=== PATIENT | female | born 1985 | race Caucasian/White ===

== ENCOUNTER 2023-01-17 13:21 | Emergency (ER) | payer BC, SELFPAY ==
[2023-01-17 13:22] VITALS: BP 113/79; PULSE 96; RESP 18; TEMP 36.5; O2SAT 96; BMI 31.2
[2023-01-17 14:01] VITALS: O2SAT 98
[2023-01-17 14:04] VITALS: BP 114/62; PULSE 96; RESP 20; O2SAT 97
--- NOTE | 2023-01-17 14:10 | RAD_ITS ---
STUDY: X-RAY CHEST REASON FOR EXAM: Female, 37 years old. Cough -- Shield abdomen . Patient is 30 weeks . TECHNIQUE: PA and lateral views of the chest. COMPARISON: None. FINDINGS: The lungs are clear and expanded. There is no demonstrated pleural abnormality. Normal size heart. Normal mediastinum and uri. Normal visualized pulmonary arteries. Normal visualized aortic arch and descending thoracic aorta. Normal visualized thoracic spine. Normal visualized ribs, clavicles, and shoulders. There is no demonstrated abnormality of the visualized soft tissue structures of the upper abdomen. RAD/Chest PA and Lateral IMPRESSION: Normal x-ray examination of the chest. Electronically Signed: Tk Tejada MD at 14:24 EST ,
--- NOTE | 2023-01-17 14:48 | ED.VIS.DYS ---
HPI History of Present Illness Chief Complaint: Cold Sx Informant: patient Onset/Context/Timing Onset: Weeks (1-2) Context: gradual Timing: Continuous Quality: Positive for Dyspnea on exertion Worsened by: Nothing Relieved by: Albuterol (Xopenex) and - Associated Symptoms cough, rhinorrhea and post nasal drip; Negative for ear pain, fever, sore throat, subjective, chills, clear sputum, white sputum, yellow sputum or green sputum Chest Pain: Positive for None Narrative Narrative: Patient presents with shortness of breath and cough that has been getting worse over the past 1 to 2 weeks. Patient is approximate 30 weeks . Patient states she was prescribed an antibiotic on 01/03/2023. Patient states she took it for 5 days. Patient states that on the fourth day she started noticed improvement of her symptoms. Patient states that her symptoms improved for a few days and then started to return. Patient states she was started on prednisone and has been on that for the last 3 days. Patient states her symptoms have not improved. Patient states she is not coughing anything up but states she never coughs anything up whenever she has respiratory infection. Patient admits to some nausea but denies any vomiting. Patient states this is similar to the nausea she has had throughout the . Patient admits to some nasal congestion, headache, and sinus pressure. [facility] Medical History (Updated 01/17/23 @ 15:[address] Humberto Retana DO) Asthma Migraines Vocal cord dysplasia Allergy/AdvReac Type Severity Reaction Status Date / Time albuterol Allergy Chest Verified 01/17/23 13:59 tightness ciprofloxacin [From Cipro] Allergy Hives Verified 01/17/23 13:59 diphenhydramine Allergy Other Verified 01/17/23 13:59 [From Benadryl] levofloxacin [From Levaquin] Allergy Hives Verified 01/17/23 13:59 Surgical History (Updated 01/17/23 @ 14:[address] Humbetro Retana DO) Hx of sinus surgery Previous section Social History Smoking Status: Never smoker ROS ROS ED Constitutional Constitutional ED: Denies chills or fever(s) Eyes Eyes: Denies blurry vision or change in vision ENT ENT ED: Reports rhinorrhea; Denies sore throat Cardiovascular Cardiovascular: Denies chest pain or palpitations Respiratory/Chest Respiratory/Chest: Reports cough and dyspnea Gastrointestinal Gastrointestinal: Reports nausea; Denies vomiting Genitourinary Genitourinary ED: Reports urinary frequency; Denies dysuria or hematuria Musculoskeletal Musculoskeletal: Denies back pain or neck pain Integumentary Denies abscess or rash Neurologic Neurologic: Reports headache(s); Denies weakness Allergic/Immunologic Allergic/Immunologic ED: Denies mouth swelling or urticaria EXAM Physical Exam Const Vital Signs: 01/17/23 13:22 01/17/23 14:01 01/17/23 14:04 Temperature 97.7 F L Temperature Source Temporal Pulse Rate 96 96 Respiratory Rate 18 20 H Respiratory Effort Short of Breath Labored Respiratory Depth Normal Respiratory Pattern Tachypnea Blood Pressure 113/79 114/62 Blood Pressure Mean 90 79 Pulse Ox 96 97 Oxygen Delivery Method Room Air Room Air Room Air Positive well nourished and well developed General Appearance ED: well developed HEENT Reports moist mucous membranes Neck supple and no JVD Resp normal respiratory effort Auscultation: rhonchi throughout (Mild scattered rhonchi) Cardio regular rate, regular rhythm and no murmurs GI normal to inspection, nondistended, normoactive bowel sounds and non-tender Palpation: soft Extremity normal to inspection General Extremety ED: Negative for edema or tenderness General Extremity: Negative for edema Neuro oriented x3, CN's II-XII intact bilaterally and no sensory deficits noted Sensorium / Orientation: alert Motor Exam: strength 5/5 throughout Psych mental status grossly normal Skin no rashes or lesions noted MDM MDM MDM Narrative Medical decision making narrative: Differential diagnosis includes pneumonia, viral infection, COVID infection, influenza, and upper respiratory infection. Chest x-ray will be obtained to assess for pneumonia. COVID-19 rapid antigen will be obtained to assess for COVID infection. Influenza A and influenza B rapid antigens will be obtained to assess for influenza infection. Radiography Chest X-Ray - ED: 2 View, Read by ED Physician, Read by Radiologist, Normal and No Acute Disease Diagnostic Testing: Clinical Impression(s) from Imaging Studies Chest X-Ray 01/17/23 14:10 IMPRESSION: Normal x-ray examination of the chest. Electronically Signed: Tk Tejada MD at 14:24 EST , PA and lateral chest x-ray was obtained. There are 2 views. On my independent interpretation, lung craig are clear. There is normal cardiac silhouette. Bony thorax is normal. There is no acute process noted. Radiologist also interpreted the x-ray and agrees. Treatment and Re-Evaluation Narrative: Patient is feeling better on reevaluation. Patient was advised of her findings. Patient was turned over to the oncoming physician pending COVID and influenza results. Patient would not be a candidate for Paxil that even if her COVID is positive since her symptoms have been present for more than 5 days. Patient was instructed to drink plenty of fluids. Patient was instructed to follow-up with her primary care physician in 5 to 7 days. Patient understood and was agreeable with the plan. All questions were answered. Discharge Plan Triage Chief Complaint: Cold Sx ED Provider: Humberto Retana Dx/Rx/DC Orders Clinical Impression: Acute viral bronchitis, Instructions: ED Bronchitis, No Antibiotic (Adult) Primary Care Provider: Care Physician,No Primary Referrals: Daniel Chung MD [Med Staff - Active Staff] - 5-7 Days Care Physician,No Primary [Primary Care Provider] - Disposition Disposition: Home, Self Care
[2023-01-17 16:14] VITALS: BP 111/61; PULSE 94; RESP 18; O2SAT 99
== END 2023-01-17 16:15 | disposition home or self-care (01) ==
PROVIDERS: Emergency Provider Emergency Medicine; Visit Provider Emergency Medicine
DX: O99.513 Diseases of the respiratory system complicating pregnancy, third trimester (principal); O09.513 Supervision of elderly primigravida, third trimester; J20.9 Acute bronchitis, unspecified; Z3A.30 30 weeks gestation of pregnancy
CPT/HCPCS: 71046; 87428; 99282

== ENCOUNTER 2023-03-19 09:30 | Inpatient (IN) | payer BC, SELFPAY ==
[2023-03-19] VITALS (16 sets, daily range): BP systolic 96–134; BP diastolic 40–89; PULSE 62–88; RESP 10–18; TEMP 35.9–36.7; O2SAT 96–99; BMI 32.1
[2023-03-19] MEDS: Lactated Ringers 1,000 ML 999 ML IV (10:00)
[2023-03-19 10:25] LABS: Absolute Lymphocyte Count 2.33 X10^3/uL (0.83-4.51); Absolute Neutrophil Count 6.3 X10^3/uL (2.0-7.7); Basophil# 0.03 X10^3/uL; Basophil% 0.3 % (0-1); Eosinophil# 0.07 X10^3/uL; Eosinophils% 0.7 % (0-5); Hematocrit 38.4 % (37-47); Hemoglobin 12.4 g/dL (12.0-15.0); Lymphocyte # 2.33 X10^3/ul (0.83-4.51); Lymphocyte % 24.7 % (19-41); Mean Corp Hgb Conc 32.3 g/dL (32-36); Mean Corpuscular Hgb 29.9 pg (27.0-32.0); Mean Corpuscular Volume 92.5 fL (81-99); Mean Platelet Vol. 9.7 fl (6.2-12.0); Monocyte# 0.62 X10^3/uL; Monocyte% 6.6 % (0-10); NRBC Flagged by Analyzer 0 % (0-5); Neutrophil # 6.32 X10^3/uL (2.7-7.7); Neutrophil % 67.2 % (47-70); Platelet Count 291 K/mm3 (150-450); RBC Distribution Width CV 13.7 % (11.6-14.6); RBC Distribution Width SD 46.5 fl (35.1-43.9); Red Blood Count 4.15 M/mm3 (4.2-5.4); White Blood Count 9.4 K/mm3 (4.4-11.0)
[2023-03-19 11:17] LABS: Syphilis Antibodies Non-reactive
[2023-03-19] MEDS: Lactated Ringers 1,000 ML 150 ML IV (11:44)
[2023-03-19] MEDS: Acetaminophen 500 MG Tablet 1000 MG PO ×3 (11:46→23:48)
[2023-03-19] MEDS: Sodium Citrate/Citric Acid 30 ML UDC PO (11:46)
--- NOTE | 2023-03-19 12:02 | PCM.HP.OB ---
HPI - General General Date of Admission: 03/19/23 HPI Narrative CAREY TURNER, is a 37 F who presents for repeat . Maternal Data Information Final MOI: 03/24/23 Gestational age: 39&2 PFSH PFSH Medical History Asthma History of depression Migraines Vocal cord dysplasia Home Medications amoxicillin 250 mg-potassium clavulanate 125 mg tablet 1 tab PO TID Check with primary doctor 03/19/23 [History Last Taken 03/18/23] omeprazole 20 mg capsule,delayed release 20 mg PO DAILY Check with primary doctor 03/19/23 [History Last Taken 03/18/23] ondansetron HCl 8 mg tablet 8 mg PO Q8H PRN Nausea And Vomiting 03/19/23 [History Last Taken 03/18/23] bkgpuerg-viv-Pm-FA 1 mg tablet tab PO Check with primary doctor 03/19/23 [History Last Taken 03/18/23] Allergy/AdvReac Type Severity Reaction Status Date / Time albuterol Allergy Chest Verified 03/19/23 11:23 tightness ciprofloxacin [From Cipro] Allergy Hives Verified 03/19/23 11:23 diphenhydramine Allergy Other Verified 03/19/23 11:23 [From Benadryl] levofloxacin [From Levaquin] Allergy Hives Verified 03/19/23 11:23 Surgical History History of surgery Hx of sinus surgery Previous section Social History Smoking Status: Never smoker History Elective abortions Hx Para 1 Spontaneous abortions Hx # Term Pregnancies Ectopic pregnancies Hx # Pregnancies Multiple births # of living children Vital Signs Vital Signs Vital Signs: 03/19/23 10:00 Temperature 97.6 F L Temperature Source Temporal Pulse Rate 86 Respiratory Rate 16 Blood Pressure 116/81 H Blood Pressure Mean 92 Blood Pressure Source Monitor Blood Pressure Position Supine Blood Pressure Location Right Arm Pulse Ox 98 Oxygen Delivery Method Room Air Weight Weight: 187 lb Body Mass Index (BMI) 32.1 Physical Exam Const alert, oriented x3 and no apparent distress Chest inspection of chest normal Resp normal respiratory effort GI soft to palpation and non-distended Inspection: gravid external exam normal Extremity normal to inspection and no calf tenderness Labs Labs Labs: Blood Type O POSITIVE Antibody Screen NEGATIVE Hct 38.4 % (37-47) Hgb 12.4 g/dL (12.0-15.0) Syphilis Total Ab Non-reactive See [facility] H&P Assessment & Plan (1) Previous section: COMMENT: @ 39&2 (2) 39 weeks gestation of : PLAN: Plan Admit to L&D MOD - counseled on R/B/A and will proceed with section Routine care
--- NOTE | 2023-03-19 12:06 | OP.PCM_ITS ---
Maternal Data Information Final MOI: 03/24/23 Gestational age: 39&2 Details Operative Information Date of Procedure: 03/19/23 Pre-Operative Diagnosis: (1) Prior section Post-Operative Diagnosis: Same Indications for : Repeat Elective Indications Narrative: The patient was taken to the operating room where spinal anesthesia was placed & found to be adequate. She was prepped and draped in the dorsal supine position with a leftward tilt. A Pfannenstiel skin incision was made approximately 2 cm above the symphysis pubis and carried through to the underlying fascia with the scalpel. The fascia was incised incised in the midline and extended laterally with the Calderon scissors. The rectus muscles were in the midline and the peritoneum was entered carefully and bluntly. The peritoneal incision was stretched and the bladder blade was inserted. Vesicouterine peritoneum was tented up, incised & then bladder flap created gently. The uterine incision was made in a low transverse fashion with the scalpel and extended superiorly and inferiorly with blunt dissection. The 's head was brought to the incision in the flexed position and delivered without difficulty. The head was gently guided to allow delivery of the anterior and posterior shoulders. The body then delivered with fundal pressure in the standard fashion. The 3VC cord was clamped and cut in delayed fashion. The was handed off to the waiting site reliability engineer. The placenta was delivered with fundal massage and gentle traction in the standard fashion. The uterus was exteriorized and cleared of clots and debris. The uterine incision was closed with #1 Vicryl suture in a running locked fashion. Monocryl suture was used in an imbricating fashion. 1 additional stitch placed to obtain hemostasis. The incision was examined and was found to be hemostatic. The uterus was returned to the abdominal cavity. After irrigating Tanya was placed over the uterine incision as some areas were denuded (but hemostatic). The peritoneum was closed with vicryl suture in running fashion The rectus muscle was examined and any bleeding was Bovie cauterized. The fascia was closed with PDS suture in a running standard fashion. The subcutaneous tissue was examining and any bleeding was Bovie cauterized. The subcutaneous tissue was reapproximated with interrupted sutures. The skin was closed in a subcuticular fashion by the EXECUTIVE ASSOCIATE while I was present in the labor & delivery unit. The remainder of the procedure was performed by me with assistance. All sponge, lap, and needle counts were correct. The patient was taken to her room for recovery in a stable condition. Classification: Scheduled Procedure Type: low transverse salvage mechanic #1: Rupal Chavez Type of Anesthesia: Spinal Antibiotic Given: Ancef 2 grams IV x1 Drain: Mirza to straight drain Estimated Blood Loss: 800ml Fluids Replaced: 1000ml Procedure Start Time: 12:18 Procedure Stop Time: 13:07 Findings Description of Procedure: Normal maternal uterus and adnexa Presentation: Positive for Vertex Amniotic Membrane Rupture Type: Artificial Amniotic Fluid Description: Clear Placental Delivery Description: Expressed Placenta Disposition: [facility] Cord Vessel Description: 3 Vessels Cord Entanglement: Around neck x 2, loose Nuchal Cord Compression: Without compression Infant A Gender: Female (weight = 3845g) (1 minute): 8 (5 minute): 9 Delayed Cord Clamping: Yes Complications Complications: None
[2023-03-19] MEDS: Cefazolin 2 GM in 0.9% Normal Saline 100 ML IV (12:10)
[2023-03-19] MEDS: Oxytocin 15 Units/NS 250ml 15 UNITS/250 ML IV.SOLN 83 UNITS IV (13:15)
[2023-03-19] MEDS: Ondansetron 4 MG/2 ML Vial IV (14:16)
[2023-03-19] MEDS: Ketorolac 30 MG/ML Syringe IV ×2 (14:50→20:13)
[2023-03-19] MEDS: Lactated Ringers 1,000 ML 100 ML IV (16:07)
[2023-03-19] MEDS: proCHLORPERazine 10 MG/2 ML Vial IV (16:26)
[2023-03-19] MEDS: Amox/Clavulanate 875 MG Tablet PO (18:18)
--- NOTE | 2023-03-19 19:28 | NURSING ---
pt refuses SCD's
--- NOTE | 2023-03-19 19:28 | NURSING ---
pt shaking uncontrollably at times. Adrenalyn and baby shakes explained. Pt anxious and lots of emotional support given.
[2023-03-20 00:16] VITALS: RESP 16; O2SAT 98
[2023-03-20] MEDS: Enoxaparin 40 MG/0.4 ML Syringe SC (00:20)
[2023-03-20] MEDS: Ketorolac 30 MG/ML Syringe IV ×2 (02:42→09:00)
[2023-03-20] MEDS: 0.9% Saline Lock 10 ML Syringe IV ×2 (02:43→09:00)
[2023-03-20 04:00] VITALS: BP 120/82; PULSE 73; RESP 16; TEMP 36.6
[2023-03-20] MEDS: Acetaminophen 500 MG Tablet 1000 MG PO ×4 (06:06→23:50)
[2023-03-20 06:25] LABS: Hematocrit 35.3 % (37-47); Hemoglobin 11.6 g/dL (12.0-15.0); Mean Corp Hgb Conc 32.9 g/dL (32-36); Mean Corpuscular Hgb 30.1 pg (27.0-32.0); Mean Corpuscular Volume 91.7 fL (81-99); Mean Platelet Vol. 9.3 fl (6.2-12.0); Platelet Count 286 K/mm3 (150-450); RBC Distribution Width CV 13.4 % (11.6-14.6); RBC Distribution Width SD 45.7 fl (35.1-43.9); Red Blood Count 3.85 M/mm3 (4.2-5.4); White Blood Count 13.6 K/mm3 (4.4-11.0)
--- NOTE | 2023-03-20 07:21 | PCM.PN.OB ---
Subjective Subjective Patient seen at bedside. Feeling well. Pain is controlled with Motrin and Tylenol PO. Patient ambulating and voiding without difficulty. Passing flatus. Denies any CP, SOB or dizziness. Breast feeding independently. Objective Data Objective Data Vital Signs: Vital Signs Temp Pulse Resp BP Pulse Ox O2 Del Method 97.9 F 73 16 120/82 H 98 Room Air 03/20/23 04:00 03/20/23 04:00 03/20/23 04:00 03/20/23 04:00 03/20/23 00:16 03/20/23 04:00 Oxygen Delivery Method Room Air Weight: 187 lb Body Mass Index (BMI) 32.1 Intake & Output: Intake and Output for Last 24 Hours 03/18/23 03/19/23 03/20/23 23:59 23:59 23:59 Intake Total 2784.29 / 2784.29 Output Total 3500 / 3500 1000 / 1000 Balance -715.71 / -715.71 -1000 / -1000 Lab / Micro Data Result Diagrams: 03/20/23 06:10 Labs: Laboratory Results - last 24 hr 03/19/23 10:00: WBC 9.4, RBC 4.15 L, Hgb 12.4, Hct 38.4, MCV 92.5, MCH 29.9, MCHC 32.3, RDW Std Deviation 46.5 H, RDW Coeff of Hussain 13.7, Plt Count 291, MPV 9.7, Immature Gran % (Auto) 0.500, Neut % (Auto) 67.2, Lymph % (Auto) 24.7, Charlton % (Auto) 6.6, Eos % (Auto) 0.7, Baso % (Auto) 0.3, Absolute Neuts (auto) 6.3, Absolute Lymphs (auto) 2.33, Nucleated RBC % 0 03/19/23 10:00: Blood Type O POSITIVE, Antibody Screen NEGATIVE 03/19/23 10:00: Syphilis Total Ab Non-reactive 03/20/23 06:10: WBC 13.6 H, RBC 3.85 L, Hgb 11.6 L, Hct 35.3 L, MCV 91.7, MCH 30.1, MCHC 32.9, RDW Std Deviation 45.7 H, RDW Coeff of Hussain 13.4, Plt Count 286, MPV 9.3 ROS Eyes Eyes: Denies blurry vision, change in vision or spots in vision ENT HEENT: Denies dizziness or headache(s) Cardiovascular Cardiovascular: Denies abdominal pain, chest pain or dyspnea Respiratory/Chest Respiratory/Chest: Denies cough, dyspnea, shortness of breath at rest or shortness of breath with exertion Gastrointestinal Gastrointestinal: Denies abdominal pain, diarrhea or vomiting Genitourinary Genitourinary: Denies change in urinary stream, difficulty urinating or dysuria Musculoskeletal Musculoskeletal: Reports none Integumentary Integumentary: Denies rash Neurologic Neurologic: Denies dizziness, headache(s), memory loss or weakness Physical Exam Narrative Dressing is dry and intact Const alert and no apparent distress General Appearance: cooperative and comfortable Exam Limitations: no limitations HEENT normocephalic Eyes General Eye: normal appearance of both eyes Neck full ROM General: normal visual inspection Chest Chest: symmetrical chest wall rise Resp normal respiratory effort and normal air movement Effort and Inspection: symmetric chest movement Auscultation: clear to auscultation bilaterally Cardio regular rate and regular rhythm GI normal to inspection, nondistended, normoactive bowel sounds Back/Spine normal ROM Extremity full ROM and no calf tenderness General Extremity: normal exam except as noted Skin no rashes or lesions noted Neuro CN's II-XII intact bilaterally Psych mental status grossly normal Assessment & Plan (1) Status post delivery: (2) Care and examination of lactating mother: PLAN: Plan POD 1 Repeat Section Pain control Increase ambulation Breast feeding support Anticipate discharge home tomorrow
[2023-03-20 08:50] VITALS: BP 117/75; PULSE 85; RESP 16; TEMP 36.3; O2SAT 99
[2023-03-20] MEDS: Pantoprazole Sodium 20 MG Tablet PO (08:59)
[2023-03-20] MEDS: Senna/Docusate Sodium 1 Tablet PO (08:59)
[2023-03-20] MEDS: Amox/Clavulanate 875 MG Tablet PO ×2 (08:59→18:14)
[2023-03-20 11:35] VITALS: BP 110/67; PULSE 97; RESP 16; TEMP 36.4; O2SAT 99
[2023-03-20] MEDS: Prenatal Vits Tablet 1 TABLET PO (11:46)
[2023-03-20] MEDS: Ibuprofen 600 MG Tablet PO ×2 (16:00→21:49)
[2023-03-20 16:02] VITALS: BP 111/75; PULSE 99; RESP 16; TEMP 36.8; O2SAT 98
[2023-03-20 19:40] VITALS: BP 107/78; PULSE 110; RESP 16; TEMP 36.6; O2SAT 99
[2023-03-21] MEDS: oxyCODONE 5 MG Tablet PO ×2 (01:38→14:16)
[2023-03-21 01:41] VITALS: BP 103/72; PULSE 94; RESP 18; TEMP 36.5; O2SAT 98
[2023-03-21] MEDS: Ibuprofen 600 MG Tablet PO ×3 (03:42→16:05)
[2023-03-21] MEDS: Acetaminophen 500 MG Tablet 1000 MG PO ×2 (06:04→12:01)
--- NOTE | 2023-03-21 09:01 | PCM.PN.OB ---
Subjective Subjective Denies complaints Objective Data Objective Data Vital Signs: Vital Signs Temp Pulse Resp BP Pulse Ox O2 Del Method 97.7 F L 94 18 103/72 98 Room Air 03/21/23 01:41 03/21/23 01:41 03/21/23 01:41 03/21/23 01:41 03/21/23 01:41 03/21/23 01:41 Oxygen Delivery Method Room Air Weight: 187 lb Body Mass Index (BMI) 32.1 Intake & Output: Intake and Output for Last 24 Hours 03/19/23 03/20/23 03/21/23 23:59 23:59 23:59 Intake Total 2784.29 / 2784.29 800 / 800 Output Total 3500 / 3500 1000 / 1000 Balance -715.71 / -715.71 -200 / -200 Lab / Micro Data Result Diagrams: 03/20/23 06:10 Physical Exam Const alert, oriented x3 and no apparent distress HEENT normocephalic GI soft to palpation, non-tender and non-distended GI Narrative: fundus firm, mid & below umbilicus Incision - bandage c/d/i Extremity normal to inspection and no calf tenderness Assessment & Plan (1) Status post delivery: COMMENT: POD#2 PLAN: Plan D/c home later today
[2023-03-21 09:02] VITALS: BP 103/65; PULSE 85; RESP 18; TEMP 36.5; O2SAT 99
--- NOTE | 2023-03-21 09:02 | DCINST_ITS ---
Discharge Instructions Diet Discharge Diet: No restrictions Activity Discharge Activity: May Shower May resume sexual activity in: 6 weeks Weight Bearing Status: Weight bearing as tolerated Dressing / Incision Call your doctor if your incision/area has: Continuous Slow Oozing, Sudden Increased Bleeding, Increased Pain/ Swelling, Increased Redness, Foul Smelling Discharge and Swelling at the incision site Call your doctor if you observe: Fever of 101 or Higher, Coldness, Increased Pain, Change in Color, Inability to urinate, Inability to have a bowel movement, Using more than 1 pad per hour, Shortness of breath, Dizziness, Fainting spells, Chest pain, Increased palpitations (irregular heartbeat), Calf discomfort and Uncontrolled pain Suture Line Care: Avoid Pulling/Pushing and Avoid Pinching/Bending Remove Dressing in: 1 week Cleanse incision/area with: Soap & Water Follow Up Care Please Follow Up With: Daniel Chung MD When: Follow up in 2 and 6 weeks for visits. Test Results: Test results from this visit will be discussed in further detail at your follow- up appointment, if applicable. Discharge Plan Admission Admit Date/Time: 03/19/23 09:30 Primary Reason for Your Visit: section Attending Provider: Daniel Chung Primary Care Provider: Bel Edwards Primary Discharge Orders/Prescriptions Prescriptions: New acetaminophen 500 mg Tablet 1,000 mg PO Q6 Qty: 0 0RF ibuprofen 600 mg Tablet 600 mg PO Q6H Qty: 0 0RF Continued ondansetron HCl 8 mg Tablet 8 mg PO Q8H PRN (Reason: Nausea And Vomiting) amoxicillin-pot clavulanate 250-125 mg Tablet 1 tab PO TID caanosjp-[id number]-[id number]-FA 1 mg Tablet PO omeprazole 20 mg Capsule,Delayed Release(Dr/Ec) 20 mg PO DAILY Referrals / Follow Up: Bel Edwards Primary [Primary Care Provider] - Disposition Disposition (needs filled in before D/C Order can be placed): Home, Self Care
[2023-03-21] MEDS: Pantoprazole Sodium 20 MG Tablet PO (09:09)
[2023-03-21] MEDS: Senna/Docusate Sodium 1 Tablet PO (09:09)
[2023-03-21] MEDS: Amox/Clavulanate 875 MG Tablet PO (10:03)
[2023-03-21] MEDS: Prenatal Vits Tablet 1 TABLET PO (12:01)
[2023-03-21] MEDS: Enoxaparin 40 MG/0.4 ML Syringe SC (12:02)
--- NOTE | 2023-03-21 14:05 | CASEMGMT ---
Social Work Assessment Labor and Delivery Unit Patient Address: [address], [place], [place] Phone number: [phone] Date of Referral: 03/21/2023 Time of Referral: 10:48 Referred By: Daniel Date of Intervention: 03/21/2023 Time of Intervention: 1:30 Reason for Referral: Hx of anxiety/depression History obtained from: medical records and mother of baby (MOB) and FOB Household composition: MOB (Raquel), FOB (Kyaw) and brother Cordell (Grady) 2.5 y.o. Patient's parent/guardian status: MOB and FOB have been together almost 5 years and are . Recently moved back to [place] from [place] for employment. They have one mutual son Grady. Medical History: 3 pregnanacies, now 2 babies. Son was emergency and new baby was scheduled . Baby girl 03/19 , 8/9 apgars, 8.47 lbs, named Jen (Otis). Mom had appropriate care. 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 Financial Status: Denies concerns Infant Supplies: Reports having all supplies (car seat, crib, bassinet, etc) Childcare/Caregiver(s): Maternal grandparents to help, VIDAL has 5 siblings nearby Transportation: No concerns Programs/Agencies Involved: None reported Children Services/Legal Issues: None reported Behavioral Health Issues: VIDAL reports instance of depression/anxiety when ill in 2016. VIDAL reports having a migraine for nearly 2 months and receiving medical treatment for it but reports it instigated depression and she took Zoloft for a year which helped. MOB denies any history of SI or current depression symptoms. MOB is open to resources and willing to discuss if PPD symptoms arise. Denies any family history of mental illness. Denies any substance use concerns and no drug screens available. Denies family history of addiction. Family/Social Stressors: ELs family is primarily in [place] and [place]. Support Systems: Maternal grandparents, maternal aunts/uncles. Depression: Provided education and resources given, parents receptive. Shaken Baby: Provided education, parents receptive. Safe Sleeping: Provided education, parents receptive. PLAN: No other services requested or indicated. Angelita Rosales STEAM PAN SPONGER, COST AND RISK ANALYSIS MANAGER
[2023-03-21 14:17] VITALS: BP 104/71; PULSE 89; RESP 18; TEMP 36.4; O2SAT 99
== END 2023-03-21 16:55 | disposition home or self-care (01) | DRG 788 ==
PROVIDERS: Admitting Provider Obstetrics & Gynecology; Visit Provider Obstetrics & Gynecology
PROC: 10D00Z1 Extraction of Products of Conception, Low, Open Approach (ICD-10-PCS; CPT 59514; principal; 2023-03-19 11:45)
DX: O34.219 Maternal care for unspecified type scar from previous cesarean delivery (principal); O69.2XX0 Labor and delivery complicated by other cord entanglement, with compression, not applicable or unspecified; Z37.0 Single live birth; Z3A.39 39 weeks gestation of pregnancy
CPT/HCPCS: 59025; 59050; 85025; 85027; 86780; 86850; 86900; 86901; 99221; J7120; A4216; G0378; J2405

== ENCOUNTER 2025-04-12 20:12 | Emergency (ER) | payer BC, SELFPAY ==
[2025-04-12 20:15] VITALS: BP 135/92; PULSE 97; RESP 20; TEMP 36.9; O2SAT 100; BMI 34.3
[2025-04-12] MEDS: Lidocaine 1% (20 ml mdv) 20 ML Vial INFILT (20:51)
--- NOTE | 2025-04-12 20:51 | EDS_ITS ---
HPI History of Present Illness HPI Narrative: 39-year-old female no Cee[facility] past medical history. [id number]. She was opening a can and when she went to take the lid off she cut the distal aspect of her right thumb and the thenar eminence. This occurred about an hour ago. Tetanus is 2 to 3 years old. Denies any other complaints. Chief Complaint: Laceration Informant: patient Occured/Mechanism Mechanism/Context: Yes injury Onset/Context/Timing Onset: Today Context: Sudden Onset Timing: Continuous Current Severity: Mild Maximum Severity: Mild Associated Symptoms Associated Symptoms: Negative for Parasthesia, Weakness or Loss of Funtion Narrative Narrative: 39-year-old female [id number] cut her right thenar eminence and distal thumb on a can when she was trying to open it. Tetanus Immunization: <5 years Prior similar symptoms: No Recent [facility]: [facility] Medical History History of depression Vocal cord dysplasia Asthma Migraines Home Medications ?Medication ?Instructions ?Recorded ?Last Taken ?Type amoxicillin 250 mg-potassium 1 tab PO TID Check with p rimary 03/19/23 03/18/23 History clavulanate 125 mg tablet doctor omeprazole 20 mg capsule,delayed 20 mg PO DAILY Check with primary 03/19/23 03/18/23 History release doctor ondansetron HCl 8 mg tablet 8 mg PO Q8H PRN Nausea And Vomiting 03/19/23 03/18/23 History [id number] 1 mg tab PO Check with [facility] doctor 03/19/23 03/18/23 History tablet acetaminophen 500 mg tablet 1,000 mg (2 x 500 mg) PO Q 6 #0 tabs 03/21/23 Unknown Rx ibuprofen 600 mg tablet 600 mg PO Q6H #0 tabs Unknown Rx Allergy/AdvReac Type Severity Reaction Status Date / Time albuterol Allergy Chest Verified 04/12/25 20:16 tightness ciprofloxacin (From Cipro) Allergy Hives Verified 04/12/25 20:16 diphenhydramine (From Allergy Other Verified 04/12/25 20:16 Benadryl) levofloxacin (From Levaquin) Allergy Hives Verified 04/12/25 20:16 Surgical History History of surgery Hx of sinus surgery Previous section Social History Smoking Status: Never smoker ROS ROS ED ROS Narrative Denies recent illness. Constitutional Constitutional ED: Denies fever(s) Eyes Eyes: Denies blurry vision ENT ENT ED: Denies ear pain Cardiovascular Cardiovascular: Denies chest pain Respiratory/Chest Respiratory/Chest: Denies cough or dyspnea Gastrointestinal Gastrointestinal: Denies abdominal pain Genitourinary Genitourinary ED: Denies dysuria or hematuria Musculoskeletal Musculoskeletal: Denies back pain or myalgias Integumentary Denies abscess or Abrasions Neurologic Neurologic: Denies headache(s) Psychiatric Psychiatric: Denies anxiety or depression Endocrine Endocrinology: Denies cold intolerance Hematologic/Lymphatic Hematologic/Lymphatic: Denies easy bleeding, easy bruising or lymphadenopathy Allergic/Immunologic Allergic/Immunologic ED: Denies mouth swelling, tongue swelling or urticaria EXAM Physical Exam Narrative Exam Narrative: 39-year-old female sitting upright in bed. Vital signs stable afebrile. HEENT exam pupils round react to light. Moist mucous membranes. Lungs clear to auscultation bilateral. Heart regular rate and rhythm no murmur. Rate about 95. Chest wall ribs nontender. Abdomen soft nontender. Moving all 4 extremities. Right thumb there is dried blood. There is a 1 to 2 inch lacera tion on thenar eminence. No small laceration on the distal right palmar thumb. Full range of motion all digits of the hand. Neurovascularly intact. Normal touch sensation. No pulsatile bleeding. No tendon, joint or bone involvement. Patient is awake and alert. No focal motor deficits. Const Vital Signs: 04/12/25 20:15 Temperature 98.5 F Temperature Source Oral Pulse Rate 97 Respiratory Rate 20 H Blood Pressure 135/92 H Blood Pressure Mean 106 Pulse Ox 100 Oxygen Delivery Method Room Air Positive well nourished and well developed; Negative for cachectic, contractures or unkempt General Appearance ED: well developed and NAD; Negative for unkempt, cachectic, contractures, cyanotic or diaphoretic Nutritional Appearance: Negative for cachectic HEENT Reports moist mucous membranes normocephalic and atraumatic Eyes PERRL and EOMs intact bilaterally Neck full ROM and supple Chest Wall inspection of chest normal and palpation of chest normal Resp normal respiratory effort and clear to auscultation bilaterally Auscultation: Negative for rales, rhonchi, wheezes or diminished lung sounds Cardio regular rate, regular rhythm, S1 normal heart sound, S2 normal heart sound and no murmurs Rate: Negative for bradycardia or tachycardic Rhythm: Negative for abnormal rhythm GI non-tender, non-distended and no masses Inspection: Negative for abdominal distention Auscultation: normoactive bowel sounds Palpation: soft; Negative for tender, guarding or rebound tenderness present Back/Spine no CVA tenderness Extremity full ROM; Negative for normal to inspection Extremity Narrative: Right hand palm thenar eminence 1 to 2 inch laceration. Dried blood. No active bleeding. Distal right thumb palmar aspect about a 1 inch laceration. Not actively bleeding. Full range of motion all digits of the right hand. Full flexion extension of the thumb. Normal touch sensation. No foreign body or infection. Neuro oriented x3, CN's II-XII intact bilaterally, moves all extremities, no focal motor deficits and no sensory deficits noted Sensorium / Orientation: alert, oriented to person, oriented to place and oriented to time; Negative for orientation impaired, lethargic or stuporous Motor Exam: strength 5/5 throughout Psych mental status grossly normal Appearance: Negative for unkempt Skin Skin Narrative: Lacerations right thumb thenar eminence and distal thumb. Thenar eminence will need to be closed. May be old Dermabond in the distal phalanx. General Skin Exam: Negative for petechiae Lesions: no lesions Rashes: no rashes Trauma: laceration; Negative for no lacerations or abrasions MDM MDM MDM Narrative Medical decision making narrative: 39-year-old right hand lacerations x 2. The thenar eminence laceration will need closed using sutures. The distal aspect laceration appears more s uperficial may be able to be dermabonded. Her tetanus is up-to-date Doing well after suture repair. Discharged home with wound care instructions. History & Record Review Discussion w/independent historian: Patient Procedures Lacerations Right thumb laceration x 2.: Length: 1.5 in Depth: Skin Shape: Linear Laceration repair: Irrigated, Lidocaine, Local and Skin sutures Number of Sutures/[place]: 3 Suture Information: Ethilon, Simple and 5-0 Comment: Right hand thenar eminence laceration 1-1/2 to 2 inches. Local anesthetized with lidocaine. Cleaned with Shur-Clens. Washed and irrigated with saline. Explored. Closed using 3 simple erupted 5-0 Ethilon sutures. Proper hemostasis wound closure was obtained. Second laceration right distal thumb about an inch. Currently not open or bleeding. Washed. Did not separate. Closed using Dermabond. Patient was instructed on wound care for both sites. Suture removal in 7 to 10 days. Discharge Plan Triage Chief Complaint: Laceration ED Provider: Joseph Mcbride Dx/Rx/DC Orders Instructions: ED Laceration, All Closures, ED Laceration, Hand: All Closures, ED Laceration, Extremity: Skin Glue Prescriptions: No Action ondansetron HCl 8 mg Tablet 8 mg PO Q8H PRN (Reason: Nausea And Vomiting) amoxicillin-pot clavulanate 250-125 mg Tablet 1 tab PO TID [id number] 1 mg Tablet PO omeprazole 20 mg Capsule,Delayed Release(Dr/Ec) 20 mg PO DAILY acetaminophen 500 mg Tablet 1,000 mg PO Q6 Qty: 0 0RF ibuprofen 600 mg Tablet 600 mg PO Q6H Qty: 0 0RF Primary Care Provider: Giorgio Menjivar Referrals: Giorgio Menjivar MD [Primary Care Provider] - 10 Day for suture removal Care Physician,No Primary [Non-Staff] - Activity Restrictions/Additional Instructions: Keep the hand dry and clean. Can get it wet in the shower. Gently clean it. Dry thoroughly. Do not let it soak in any dirty water. Clean daily with soap and water. Apply antibiotic ointment. Watch for any signs of infection such as pus, swelling, fever, streaks of seen return. Stitches out in 7 to 10 days. Print Language: [place] Disposition Disposition: Home, Self Care
[2025-04-12] MEDS: Acetaminophen 500 MG Tablet 1000 MG PO (22:56)
== END 2025-04-12 23:46 | disposition home or self-care (01) ==
PROVIDERS: Emergency Provider Emergency Medicine; PCP Internal Medicine; Visit Provider Emergency Medicine
DX: S61.011A Laceration without foreign body of right thumb without damage to nail, initial encounter (principal); S61.411A Laceration without foreign body of right hand, initial encounter; W26.8XXA Contact with other sharp object(s), not elsewhere classified, initial encounter
CPT/HCPCS: 12001; 99284